=== PATIENT | male | born 1950 | race Caucasian/White ===

== ENCOUNTER 2025-06-07 10:34 | Outpatient (CLI) | payer MEDICARE, OTHER ==
--- NOTE | 2025-06-07 19:01 | CARDIOLOGY REPORT ---
APPROVED REPORT EXAM: Comprehensive 2D, Doppler, and color-flow Echocardiogram. 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 214.1 cm/s AoV VTI 30.2 cm AO Peak GR. 18.3 mmHg AO Mean GR. 11 mmHg LVOT VTI 22.05 cm LVOT Peak Boyd. 130.2 cm/s HOLLAND (VMAX) 2.10 cm2 HOLLAND (VTI) 2.52 cm2 AI P 1/2 Time 25 ms Mitral Valve MV E Velocity 33.5 cm/s MV DECEL TIME 181 ms MV A Velocity 100.7 cm/s E/A Ratio 0.3 TDI E/Medial E' 6.4 Tricuspid Valve TR P. Velocity 180 cm/s RAP ESTIMATE 10 mmHg TR Peak Gr. 14 mmHg RVSP 24 mmHg LEFT VENTRICLE Normal LV size and wall thickness. Overall systolic function is hyperdynamic. Intra-cavitary gradient is present without hemodynamic compromise. Gradients at rest is 12 mmHg increasing to 40 mmHg with v alsalva. LVEF is 70-75%. RIGHT VENTRICLE RV is normal size and function. ATRIA The left atrium size is normal. AORTIC VALVE Trileaflet AV appears mildly sclerotic without stenosis. No insufficiency. MITRAL VALVE Mild mitral annular calcification without stenosis. Trace regurgitation. TRICUSPID VALVE The tricuspid valve is normal in structure with trace regurgitation. PULMONIC VALVE The pulmonary valve is normal in structure without insufficiency. GREAT VESSELS The aortic root is normal in size. The IVC is normal in size and collapses >50% with inspiration. PERICARDIUM Normal pericardium. No effusion. Other Information Study Quality: Adequate Conclusion Normal LV size and wall thickness. Overall systolic function is hyperdynamic. Intra-cavitary gradient is present without hemodynamic compromise. Gradients at rest is 12 mmHg increasing to 40 mmHg with valsalva. LVEF is 70-75%. RV is normal size and function. The left atrium size is normal. Trileaflet AV appears mildly sclerotic without stenosis. No insufficiency. Mild mitral annular calcification without stenosis. Trace regurgitation. The tricuspid valve is normal in structure with trace regurgitation. Normal pericardium. No effusion.
== END 2025-06-07 23:59 | disposition home or self-care (01) ==
LOC: RAD 10:34
PROVIDERS: ATTEND Internal Medicine
DX: I35.8 Other nonrheumatic aortic valve disorders (principal); I95.89 Other hypotension
CPT/HCPCS: 93306